=== PATIENT | male | born 1930 | race Caucasian/White ===

== ENCOUNTER 2017-02-27 19:28 | Observation (INO) ==
[2017-02-27 20:22] LABS: MANUAL DIFF NEEDED? NO
[2017-02-27 20:30] LABS: BASO% 0.6 % (0.0-0.8); EOS# 0.27 X1000 (0.0-0.7); EOS% 3.1 % (0.0-10.0); HEMOGLOBIN 10.3 g/dL (14.0-18.0); IMM GRAN# 0.03 X1000 (0.0-0.04); IMM GRAN% 0.3 % (0.0-0.5); LYMPH# 1.32 X1000 (1.2-3.4); LYMPH% 15.2 % (20.5-51.1); MCH 31.1 PG (27-31); MCHC 33.2 g/dL (33-37); MCV 93.7 FL (81-99); MONO# 0.67 X1000 (0.11-0.59); MONO% 7.7 % (1.7-9.3); MPV 9.8 FL (7.4-10.4); NEUT% 73.1 % (42.2-75.2); PLT 135 X1000 (130-400); RBC 3.31 XMIL (4.7-6.1)
[2017-02-27 21:16] LABS: CALCIUM 8.1 mg/dL (8.8-10.2); POTASSIUM 3.6 mmol/L (3.5-5.1); TOTAL BILIRUBIN 0.13 mg/dL (0.20-1.00); TOTAL PROTEIN 6.4 g/dL (6.3-8.3)
[2017-02-28] MEDS ORDERED: ULTRAM PO PRN ×2 (00:28→13:32)
[2017-02-28] MEDS ORDERED: TYLENOL PO SCH (00:28)
--- NOTE | 2017-02-28 00:50 | PROVIDER DOCUMENTATION ---
This chart was entered by Adriana Putnam Scribe, acting as scribe for Jorge Luis Moreno PA. HPI-Respiratory General - General Chief Complaint: General Adult Stated Complaint: CHEST PAIN Time Seen by Provider: 02/27/17 19:42 Source: patient Allergies/Adverse Reactions: Patient Allergies Allergy/AdvReac Type Severity Reaction Status Date / Time dextromethorphan HBr * Allergy Severe ANAPHYLAXIS Verified 02/27/17 19:47 [From NyQuil] doxylamine [From NyQuil] Allergy Severe ANAPHYLAXIS Verified 02/27/17 19:47 pseudoephedrine HCl * Allergy Severe ANAPHYLAXIS Verified 02/27/17 19:47 [From NyQuil] albuterol Allergy SHORTNESS Verified 02/27/17 19:47 OF BREATH dexlansoprazole Allergy CONFUISON Verified 02/27/17 19:47 [From Dexilant] fluticasone propionate * Allergy YEAST IN Verified 02/27/17 19:47 [From Advair Diskus] MOUTH methylprednisolone Allergy CHESTPAIN Verified 02/27/17 19:47 metoclopramide HCl * Allergy SHAKING Verified 02/27/17 19:47 [From Reglan] salmeterol xinafoate * Allergy YEAST IN Verified 02/27/17 19:47 [From Advair Diskus] MOUTH sleeping pill Allergy hallucnations Uncoded 02/27/17 19:47 found pt under bed Home Medications: Home Medication List Medication Instructions Recorded Confirmed Last Taken Type Aspirin 81 mg PO QHS 08/12/13 02/27/17 02/26/17 20:00 History Clopidogrel Bisulfate [Plavix] 75 mg PO DAILY 08/12/13 02/27/17 02/26/17 07:00 History Levothyroxine [Synthroid] 20 microgm PO DAILY 08/12/13 02/27/17 02/27/17 07:00 History Spironolactone [Aldactone] 25 mg PO DAILY 08/12/13 02/27/17 08/05/16 06:00 History Trazodone [Desyrel] 50 mg PO QHS 08/12/13 02/27/17 02/26/17 20:00 History Cetirizine HCl [Zyrtec] 10 mg PO HS 11/13/15 02/27/17 02/26/17 20:00 History Omeprazole [Prilosec] 40 mg PO DAILY@0700 11/13/15 02/27/17 02/27/17 07:00 History Tramadol HCl 37.5 mg PO PRN PRN 07/29/16 02/27/17 07/22/16 History Vitamin E 1,000 unit PO DAILY 07/29/16 02/27/17 02/27/17 07:00 History Acetaminophen [Tylenol] 1,000 mg PO Q6H #0 tablet 08/08/16 02/27/17 Unknown Rx Ergocalciferol (Vitamin D2) 50,000 unit PO DIRECTED 02/27/17 02/27/17 07:00 History [Vitamin D2] Famciclovir [Famciclovir] 500 mg PO TID 02/27/17 02/27/17 02/27/17 13:00 History Gabapentin [Gabapentin] 300 mg PO TID 02/27/17 02/27/17 02/27/17 13:00 History Sodium Polystyrene Sulfonate 60 ml PO BID 02/27/17 02/27/17 02/27/17 07:00 History [Kionex] - History of Present Illness-Resp Nature of Presenting Problem: Pt is a 86 year old male who came to the ED with a cc of having palpitations and shortness of breath this morning after taking his potassium medication. Pt was seen yesterday by Dr. Watson Nurse Practitioner and was told he had low potassium and was told to take his potassium medication. Quality of Pain: reports: none Severity in ED: reports: mild Onset/Duration: reports: this morning Timing: reports: still present Exposure: reports: unknown cause Cough Quality/Degree: reports: no cough Episode Frequency: no prior episodes Current Respiratory Medication Therapy: Initiated none Modifying Factors: improves with: exertion Associated Symptoms: reports: shortness of breath Similar Symptoms Previously?: No Recently seen or treated by another doctor?: Yes Review of Systems - Adult - REVIEW OF SYSTEMS - ADULT Constitutional: denies: chills, fever Eyes: reports: no symptoms reported Ears, Nose, Mouth & Throat: reports: no symptoms reported Cardiovascular: reports: palpitations. denies: irregular heart rate, orthopnea Respiratory: reports: shortness of breath. denies: cough, pleurisy, wheezing Gastrointestinal: denies: diarrhea, nausea, vomiting Genitourinary: reports: no symptoms reported Musculoskeletal: reports: no symptoms reported Integumentary: reports: no symptoms reported Neurological: reports: no symptoms reported Psychiatric: reports: no symptoms reported Endocrine: reports: no symptoms reported Hematologic/Lymphatic: reports: no symptoms reported Allergic/Immunologic: reports: no symptoms reported All Other Systems: Reviewed and Negative Past History - Adult - PAST MEDICAL HISTORY-ADULT Review of Records: reports: Old Records Reviewed, Nursing Assessment Review Major Childhood Illnesses: reports: denies history Cardiovascular: reports: denies history Respiratory: reports: denies history Gastrointestinal: reports: denies history Obstetrical/Gynecological: reports: denies history Genitourinary: reports: denies history Musculoskeletal: reports: denies history Neurological: reports: denies history Endocrine/Immune: reports: denies history Other Conditions: reports: denies history - IMMUNIZATION STATUS Childhood Immunizations: See Nurse Assessment Flu Vaccine: See Nurse Assessment - FAMILY HISTORY Family History: reviewed, not pertinent Physical Exam-General - PHYSICAL EXAM-ADULT Initial Vital Signs Reviewed: Yes - CONSTITUTIONAL General Appearance: appears well, alert, no apparent distress - EYES Eyes: PERRL/EOMI, pink conjunctivae - HEAD, EARS, NOSE, MOUTH & THROAT HENMT: normocephalic/atraumatic, moist mucous membranes - NECK Neck: non-tender, full range of motion - RESPIRATORY Respiratory: chest non-tender, wheezing (slight wheezing), increased rate (and shallow). negative: accessory muscle use, crackles, rales, rhonchi, stridor - CARDIOVASCULAR Cardiovascular: normal peripheral pulses, regular rate, rhythm, no edema, no gallop, no JVD, no murmur - GASTROINTESTINAL (ABDOMEN) Abdominal Exam: normal bowel sounds, non tender, soft. negative: distended, guarding, rigid, rebound, tenderness - MUSCULOSKELETAL Back Exam: normal inspection, no CVA tenderness Extremity: normal range of motion, non-tender Peripheral Pulses: radial (R): 2+, radial (L): 2+, dorsalis-pedis (R): 2+, dorsalis-pedis (L): 2+ - SKIN Integumentary: normal color, normal turgor - NEUROLOGIC Neurologic: panama hat smearer II-XII nml as tested, grossly normal - PSYCHIATRIC Psych/Mental Status: normal mood/affect, normal thought content, normal thought process, oriented x 3 Progress - PLAN OF CARE/RESULTS Progress/Plan/Lab Results: Vital Signs - 8 hr 02/27/17 19:38 Temperature 98.9 F Pulse Rate 98 H Respiratory Rate 22 Blood Pressure 148/60 O2 Sat by Pulse Oximetry 99 Laboratory Results - last 24 hr 02/27/17 02/27/17 02/27/17 20:06 20:06 20:06 WBC 8.67 RBC 3.31 L Hgb 10.3 L Hct 31.0 L MCV 93.7 MCH 31.1 H MCHC 33.2 RDW Std Deviation 15.3 H Plt Count 135 MPV 9.8 Immature Gran % (Auto) 0.3 Neut % (Auto) 73.1 Lymph % (Auto) 15.2 L Foster % (Auto) 7.7 Eos % (Auto) 3.1 Baso % (Auto) 0.6 Immature Gran # (Auto) 0.03 Neut # (Auto) 6.33 Lymph # (Auto) 1.32 Foster # (Auto) 0.67 H Eos # (Auto) 0.27 Baso # (Auto) 0.05 PTT (Actin FS) D-Dimer 1.03 H Sodium 140 Potassium 3.6 Chloride 101 Carbon Dioxide 32 Anion Gap 7 BUN 25 H Creatinine 1.8 H Estimated GFR/1.73 m2 36 BUN/Creatinine Ratio 14 Glucose 110 H Calculated Osmolality 284 Calcium 8.1 L Total Bilirubin 0.13 L AST 15 ALT 12 Alkaline Phosphatase 64 Creatine Kinase Troponin T Vks-G-Hxthzkhdyth Pept Total Protein 6.4 Albumin 4.0 Globulin 2.4 Albumin/Globulin Ratio 1.7 02/27/17 02/27/17 02/27/17 20:06 20:06 20:06 WBC RBC Hgb Hct MCV MCH MCHC RDW Std Deviation Plt Count MPV Immature Gran % (Auto) Neut % (Auto) Lymph % (Auto) Foster % (Auto) Eos % (Auto) Baso % (Auto) Immature Gran # (Auto) Neut # (Auto) Lymph # (Auto) Foster # (Auto) Eos # (Auto) Baso # (Auto) PTT (Actin FS) 26.5 D-Dimer Sodium Potassium Chloride Carbon Dioxide Anion Gap BUN Creatinine Estimated GFR/1.73 m2 BUN/Creatinine Ratio Glucose Calculated Osmolality Calcium Total Bilirubin AST ALT Alkaline Phosphatase Creatine Kinase 30 Troponin T Lxi-V-Owrsawxxlkf Pept 408 Total Protein Albumin Globulin Albumin/Globulin Ratio 02/27/17 20:06 WBC RBC Hgb Hct MCV MCH MCHC RDW Std Deviation Plt Count MPV Immature Gran % (Auto) Neut % (Auto) Lymph % (Auto) Foster % (Auto) Eos % (Auto) Baso % (Auto) Immature Gran # (Auto) Neut # (Auto) Lymph # (Auto) Foster # (Auto) Eos # (Auto) Baso # (Auto) PTT (Actin FS) D-Dimer Sodium Potassium Chloride Carbon Dioxide Anion Gap BUN Creatinine Estimated GFR/1.73 m2 BUN/Creatinine Ratio Glucose Calculated Osmolality Calcium Total Bilirubin AST ALT Alkaline Phosphatase Creatine Kinase Troponin T < 0.010 Ifk-T-Hnkarztbkdj Pept Total Protein Albumin Globulin Albumin/Globulin Ratio Orders Category Date Time Status Admit - [facility] Routine AdmDCTranf 02/28/17 00:28 Ordered CBC WITH DIFF [HEME] Stat Lab 02/27/17 20:06 Completed CK PROFILE [SP CHEM] Stat Lab 02/27/17 20:06 Completed COMPREHENSIVE METABOLIC PANEL [CHEM] Stat Lab 02/27/17 20:06 Completed D-DIMER [CHEM] Stat Lab 02/27/17 20:06 Completed PRO B-NATRIURETIC PEPTIDE Stat Lab 02/27/17 20:06 Completed PTT [COAG] Stat Lab 02/27/17 20:06 Completed TROPONIN T Stat Lab 02/27/17 20:06 Completed Acetaminophen [Tylenol] Med 02/28/17 00:28 Active 1,000 mg PO Q6H Aspirin Med 02/28/17 21:00 Active 81 mg PO QHS Cetirizine [Zyrtec] Med 02/28/17 21:00 Active 10 mg PO HS Clopidogrel [Plavix] Med 02/28/17 09:00 Active 75 mg PO DAILY Ergocalciferol (Vitamin D2) [Vitamin D] Med 03/02/17 09:00 Active 50,000 unit PO Q7D Famciclovir [Famvir] Med 02/28/17 09:00 Active 500 mg PO TID Gabapentin [Neurontin] Med 02/28/17 09:00 Active 300 mg PO TID Levothyroxine [Synthroid] Med 02/28/17 09:00 Pending 20 microgm PO DAILY Omeprazole [Prilosec] Med 02/28/17 07:00 Active 40 mg PO DAILY@0700 Spironolactone [Aldactone] Med 02/28/17 09:00 Active 25 mg PO DAILY Tramadol [Ultram] Med 02/28/17 00:28 Pending 37.5 mg PO PRN PRN Trazodone [Desyrel] Med 02/28/17 21:00 Active 50 mg PO QHS Vitamin E Med 02/28/17 09:00 Active 1,000 units PO DAILY EKG [EKG] Stat Ther 02/27/17 19:30 Ordered Transfer/Admit Order [TRANSFER] Routine Transfer 02/27/17 23:52 Completed Result Diagrams: 02/27/17 20:06 02/27/17 20:06 - REASSESSMENT Reassessment #1 Time Reassessed: 22:07 (Elevated d dimer, but pt has renal insufficiency. Recommend admission for VQ scan in the morning, pt having progressive weakness, palpitations and shortness of breath. Discussed wtih Dr. Lizarraga. Waiting for return call from hospitalist. ) - CONSULTS/PCP/HOSPITALIST Notification #1 *Consult/PCP/Hospitalist*: Dr. Coleman, Hospitalist Time Discussed: 22:15 Consult Disposition: Will see in ED, Admit Departure - Departure Date of Disposition Decision: 01/27/17 Time of Disposition Decision: 22:15 DIAGNOSIS: Tachycardia, Tachypnea, Palpitations, Weakness, Elevated d-dimer Disposition: ADMITTED INPATIENT 09 Certified Medical Emergency: Emergent Condition: Stable - Critical Care Note This patient required my direct & personal management of CC.: No Attestation - Physician/ JANEE Attestation Patient care was provided by Advanced Practice Provider:: Yes Advanced Practice Provider:: Jorge Luis Moreno Advanced Practice Provider documentation review:: The Mid-level provider documentation, treatment plan and medical decision making was reviewed by the physician who agrees with all treatment and medical decision making by the [facility]. The physician spent face to face time with patient:: No Advanced Practice Provider documentation review:: Supervising physician onsite and consulted in the evaluation and care of this patient. The physician did not have a face to face encounter with the patient. This chart was documented by the indicated scribe, (Adriana Putnam Scribe) and accurately reflects the services I performed and decisions made by me, Jorge Luis Moreno PA, as attested by the provider's signature.
[2017-02-28] MEDS ORDERED: TYLENOL PO PRN (00:59)
[2017-02-28] MEDS ORDERED: NITROGLYCERIN SL PRN (00:59)
[2017-02-28] MEDS ORDERED: ZOFRAN IV PRN (00:59)
[2017-02-28 04:01] LABS: MANUAL DIFF NEEDED? NO
[2017-02-28 04:02] LABS: BASO% 0.6 % (0.0-0.8); EOS# 0.35 X1000 (0.0-0.7); EOS% 4.1 % (0.0-10.0); HEMATOCRIT 29.2 % (42.0-52.0); HEMOGLOBIN 9.9 g/dL (14.0-18.0); IMM GRAN# 0.03 X1000 (0.0-0.04); IMM GRAN% 0.4 % (0.0-0.5); LYMPH# 1.75 X1000 (1.2-3.4); LYMPH% 20.5 % (20.5-51.1); MCH 31.8 PG (27-31); MCHC 33.9 g/dL (33-37); MCV 93.9 FL (81-99); MONO# 0.67 X1000 (0.11-0.59); MONO% 7.9 % (1.7-9.3); MPV 10.4 FL (7.4-10.4); NEUT% 66.5 % (42.2-75.2); PLT 125 X1000 (130-400); RBC 3.11 XMIL (4.7-6.1)
[2017-02-28 04:26] LABS: CALCIUM 8.2 mg/dL (8.8-10.2); MAGNESIUM 1.6 mg/dL (1.5-2.7); POTASSIUM 4.1 mmol/L (3.5-5.1)
--- NOTE | 2017-02-28 05:27 | EKG Report ---
Test Performed on : 02/27/2017 7:34:41 PM Test Reason : cp Blood Pressure : / mmHG Vent. Rate : 100 BPM Atrial Rate : 100 BPM P-R Int : 156 ms QRS Dur : 068 ms QT Int : 352 ms P-R-T Axes : 062 043 028 degrees QTc Int : 454 ms Sinus rhythm. with premature atrial complexes. Otherwise normal ECG When compared with ECG of 31-JUL-2016 12:58, premature atrial complexes. are now present Unconfirmed Result
[2017-02-28] MEDS: PRILOSEC PO SCH (06:14)
--- NOTE | 2017-02-28 07:00 | EKG Report ---
Test Performed on : 02/28/2017 06:07:07 AM Test Reason : Chest Pain Blood Pressure : / mmHG Vent. Rate : 070 BPM Atrial Rate : 070 BPM P-R Int : 166 ms QRS Dur : 076 ms QT Int : 418 ms P-R-T Axes : 017 053 046 degrees QTc Int : 451 ms Atrial-paced rhythm Abnormal ECG When compared with ECG of 27-FEB-2017 19:34, (Unconfirmed) Electronic atrial pacemaker has replaced Sinus rhythm. Confirmed by Aly Maddox DO ([id number]) on 03/02/2017 10:21:15 AM
--- NOTE | 2017-02-28 07:32 | Diag Imaging Result Doc PS360 ---
CHEST-PORTABLE - 02/28/2017 INDICATION: Chest Pain/SOB TECHNIQUE: COMPARISON: 10/07/2014 FINDINGS: Stable pacemaker. Heart size and pulmonary vascularity is normal. No focal infiltrates, pneumothorax, or pleural effusion. IMPRESSION: No acute disease or change from prior. Electronically signed by Boo Stone 02/28/2017 7:29 AM
--- NOTE | 2017-02-28 07:45 | HISTORY AND PHYSICAL ---
PRIMARY CARE PROVIDER: August Colorado MD DATE AND TIME OF HISTORY AND PHYSICAL: On 02/28/2017 at 0030 hours. CHIEF COMPLAINT: Chest pain. HISTORY OF PRESENT ILLNESS: Mr. Spain is an 86-year-old male with a past medical history of coronary artery disease, status post stent placement. He also has a demand pacemaker. He presented to his physician's office yesterday, that being 02/26/2017, for complaints of chest pain, as well as palpitations. He states they did labs in the office and told him that his potassium was high. He was given a prescription for Kayexalate. The patient states that today, this afternoon, he began having a period of chest pain shortly after going to the restroom after eating dinner. He states this chest pain last upon approximately 1 hour. He described it as a constant dull ache. It was nonradiating. He does report some associated symptoms of palpitations and shortness of breath. The patient does state that he is short of breath all the time, and at this time this has not been any worse than normal. He does report some loose stools since starting the Kayexalate, though other than some reported weakness with his chest pain episode as well, he denies any other symptoms at this time. The patient states that for the past few months intermittently he has reported some palpitations. He states that he has not informed his physician or health care law specialist of this and has not recently had his pacemaker interrogated, though he did recently have the battery replaced in 2014. Upon evaluation in the ER, he was noted to have an elevated D-dimer of 1.03, though due to his renal function a CTA of the pulmonary arteries was unable to be performed at this time. At this time, we will admit the patient for further treatment and evaluation of his chest pain. Initial cardiac enzymes were negative, and his EKG showed sinus rhythm with premature atrial complexes at a rate of 100 with a QTc of 454. REVIEW OF SYSTEMS: A 12-point review of systems was conducted with the patient. All were negative except for pertinent positives as mentioned in the HPI. PAST MEDICAL HISTORY: 1. Coronary artery disease, status post stent placement. 2. Hypertension. 3. Hyperlipidemia. 4. Hypothyroidism. 5. Dual-chamber pacemaker placement for sick sinus syndrome. 6. History of diastolic heart dysfunction. 7. Recent diagnosis of herpes zoster. 8. 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 PAST SURGICAL HISTORY: 1. Pacemaker placement. 2. Cardiac stent placement. 3. Cholecystectomy. 4. Right hip replacement. 5. Appendectomy. 6. Bilateral cataract surgery. SOCIAL HISTORY: The patient denies any past or present tobacco, alcohol, or illicit drug use. ALLERGIES: The patient reports allergies to NyQuil, albuterol, Dexilant, Advair Diskus, methylprednisolone, Reglan, and unknown sleeping pill. MEDICATIONS: 1. Famciclovir 500 mg p.o. t.i.d. 2. Kionex 60 mL p.o. b.i.d. 3. Gabapentin 300 mg p.o. t.i.d. 4. Vitamin E 1000 units p.o. daily. 5. Vistaril 50 mg p.o. every night at bedtime. 6. Ultracet 37.5/325 mg tablets p.r.n. as directed for pain. 7. Aldactone 25 mg p.o. daily. 8. Prilosec 40 mg p.o. daily. 9. Levothyroxine 20 mcg p.o. daily. 10. Vitamin D2 at 50,000 units p.o. as directed. 11. Plavix 75 mg p.o. daily. 12. Zyrtec 10 mg p.o. every night at bedtime. 13. Aspirin 81 mg p.o. every night at bedtime. DIAGNOSTIC DATA: Laboratory results, white blood cell count is 8.67, hemoglobin 10.3, hematocrit 31, and platelet count is 135,000. PTT 26.5, D-dimer 1.03. Sodium 140, potassium 3.6, chloride 101, bicarbonate 32, BUN 25, creatinine 1.8 with a GFR of 36. Glucose 110, calcium 8.1. Liver function tests are within normal limits. CK 30, troponin less than 0.01, and proBNP was 408. EKG shows sinus rhythm with premature atrial complexes at a rate of 100 with a QTc of 454. We have placed a chest x-ray to be performed and are awaiting those results at this time. PHYSICAL EXAMINATION: VITAL SIGNS: Temperature 98.5 degrees, heart rate 81, respirations 20, blood pressure 133/75, oxygen saturation is 96% on room air. GENERAL: Mr. Spain is a very pleasant 86-year-old male who is resting comfortably on the ER stretcher. He was in no acute distress. He was awake, alert, and able to answer all questions appropriately. HEENT: Head is atraumatic, normocephalic. Pupils are equal, round, reactive to light, were 3 mm bilaterally and brisk. Oral mucosa is moist. Oropharynx is clear. NECK: Supple. Trachea midline. No carotid bruits noted upon auscultation bilaterally. CARDIOVASCULAR: The patient has normal S1 and S2. No murmurs, gallops, rubs appreciated with a regular rate and slightly irregular rhythm. PULMONARY: The patient has symmetrical chest expansion bilaterally. Lung sounds were clear to auscultation bilaterally in full ricks. He is maintaining oxygen saturation in the high 90s on room air. ABDOMEN: Soft, nontender, nondistended. Bowel sounds are present in all 4 quadrants and are normoactive. EXTREMITIES: No cyanosis, clubbing, or edema noted. Pulse, motor, and sensory are intact in all extremities. Pedal pulses are 3+ bilaterally. INTEGUMENTARY: The patient's skin is pink, warm, dry, and intact. He does have a rash noted along his right lateral thigh, as well as right hip, and across his right buttock. This rash at this time does not appear to be opened. The patient does report some tenderness upon palpation in this area. NEUROLOGICAL: The patient is alert and oriented x4. Cranial nerves 2 through 12 are grossly intact. Muscle strength is equal bilaterally. There is no facial droop noted. He denies any numbness or tingling at this time. ASSESSMENT AND PLAN: 1. Chest pain. For further evaluation of this, we have placed a series of cardiac enzymes, as well as a repeat EKG in the morning. We have also placed orders for an echocardiogram. So far, at this time the patient's cardiac enzymes have been negative. We will place him on continuous telemetry. We also put an order for Cardiology consultation as well. Given that the patient has had chest pain, as well as some reported shortness of breath , and he did have an elevated D-dimer, we will continue to rule out the possibility of a pulmonary embolism or possible deep vein thrombosis. We have placed an order for a V/Q lung scan in the morning, as well as bilateral lower extremity venous Doppler studies, and we will continue to follow and await those results. 2. Palpitations. The patient states that this has been ongoing for the past few months. He will be on continuous telemetry, and we will await Cardiology's evaluation for further management of this, though this could be possible pacemaker related. 3. Coronary artery disease, status post stent placement. We will continue the patient's aspirin and Plavix. 4. Hypertension. We will continue his Aldactone. 5. 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 At this time looking back at the patient's previous labs, this appears to be stable at this time. We will continue to follow and renally dose medications as necessary. 6. Normocytic anemia. This could be possibly related to the patient's chronic kidney disease. This appears to be stable at this time based on the patient's previous laboratory results, we will continue to monitor. 7. Hypothyroidism. We will continue the patient's levothyroxine. 8. Herpes zoster. We will continue with the patient's famciclovir, as well as his tramadol for pain. 9. He will be placed on the medical floor with telemetry. He will have vital signs every 4 hours. We will do strict intake and output. He will be on a heart healthy diet. Further orders and recommendations pending hospital course, diagnostic studies, and physician evaluation. Dictated by JAYLENE Duong for Ousmane Coleman MD cc: MD Kendrick Sanchez MD pt examined, agree with above APENOT MTDD
[2017-02-28] MEDS ORDERED: SYNTHROID PO SCH (09:00)
[2017-02-28] MEDS: FAMVIR PO SCH ×4 (09:42→18:00)
[2017-02-28] MEDS: PLAVIX PO SCH (09:43)
[2017-02-28] MEDS: NEURONTIN PO SCH ×3 (09:43→20:58)
[2017-02-28] MEDS: HEPARIN SUBQ SCH ×2 (09:43→20:58)
[2017-02-28] MEDS: ALDACTONE PO SCH (09:43)
[2017-02-28] MEDS: VITAMIN E PO SCH (09:43)
--- NOTE | 2017-02-28 12:47 | ECHO REPORT ---
ORDER DATE: 02/28/2017 INDICATION: Chest pain, history of TIA as well as CHF. FINDINGS: 1. Right atrium appears normal in size at 3.7 cm. Linear artifact consistent with device leads is noted the right heart chambers. 2. Mild tricuspid regurgitation with an RV systolic pressure of 48. 3. Normal RV size and systolic function. 4. No significant pulmonic insufficiency. 5. Normal left atrial size at 3 cm. 6. No mitral prolapse. Trace mitral regurgitation. 7. Normal LV size, end-diastolic dimension of 3.2. Normal wall thicknesses with a posterior and interventricular septal wall thicknesses of 1.0 and 0.6 cm respectively. Normal LV systolic function with a calculated EF of 64% with normal wall motion. 8. Aortic valve is difficult to visualize on 2 dimensional parameters. It is somewhat sclerotic. There is no significant gradient across the valve to suggest a significant degree of stenosis. There is no aortic insufficiency identified. 9. Aorta appears normal in visualized segments. 10. No pericardial effusion seen. cc: MD Kendrick Mackenzie MD
[2017-02-28] MEDS ORDERED: LMX 5 CREAM TOP PRN (13:30)
[2017-02-28] MEDS ORDERED: ULTRACET 37.5MG/325MG PO PRN (13:40)
[2017-02-28] MEDS ORDERED: XYLOCAINE 5% OINT TOP PRN (14:05)
--- NOTE | 2017-02-28 15:28 | Diag Imaging Result Doc PS360 ---
EXAM: LUNG SCAN / VQ HISTORY: Chest Pain,Elevated D-Dimer TECHNIQUE: Ventilation/perfusion lung scan, 40.7 mCi of technetium 99m DTPA aerosol/5.9 mCi of technetium 99m MAA intravenously. COMMENT: There is no evidence of ventilation/perfusion mismatch. No absolute perfusion defects are present. IMPRESSION: Normal study. Electronically signed by Kevan Mcmanus 02/28/2017 3:25 PM
--- NOTE | 2017-02-28 19:12 | CONSULTATION ---
DATE OF CONSULTATION: 02/28/2017 IMPRESSION: 1. Chest discomfort with predominantly atypical features. The patient actually characterizes chest discomfort as a numbness that is very brief followed by a dull pain across the upper left chest. He also relates some episodes of chest tightness across the lower chest. All of his chest symptoms are nonexertional. Pattern of symptoms has been relatively stable and generally infrequent. 2. Atherosclerotic coronary disease with history of previous coronary angioplasty/stenting to the right coronary artery in 2007. Patient last had stress study in July 2013 which was negative for inducible ischemia. 3. Abnormal D-dimer this admission. Patient has already had V/Q lung scan today which was normal. 4. Hypertension. 5. Renal dysfunction with creatinine 1.9. 6. Occasional brief palpitations. Pacemaker interrogation today shows no recent arrhythmias. There have been some brief instances of supraventricular tachycardia in December. 7. Sinus node dysfunction. Patient is status post permanent pacemaker with [employer] device. 8. Hypertension. 9. Hyperlipidemia. 10. Transient ischemic attack in the past. 11. Recent shingles in right thigh. RECOMMENDATIONS: 1. Given that cardiac enzymes have been negative, it is reasonable to consider further evaluation as an outpatient at this point. Certainly a noninvasive workup would be most appropriate with Lexiscan sestamibi study. This was discussed at length with the patient and his and they are most comfortable with this approach. Unless large burden of ischemia is manifest, would gravitate towards medical management of his coronary atherosclerosis. 2. Add low-dose beta garrick. I suspect that he had been on this before but has been reporting some generalized weakness that seems to be unrelated to being on beta-garrick as he has continued to report this symptom. HISTORY: This 86-year-old white male with history of previous coronary angioplasty/stenting of the right coronary in 2007, sinus node dysfunction, previous permanent pacemaker, hypertension, hyperlipidemia, previous transient ischemic attack, and recent shingles eruption right thigh was admitted for further evaluation of chest pain. He describes his chest symptoms somewhat vaguely. He relates a numbness in the center of the chest that may occur spontaneous and last less than 10 seconds followed by some dull discomfort across the left upper chest. He also describes occasional episodes of chest tightness across the lower precordium. None of his chest symptoms are exertional. He has had such chest symptoms off and on for some time and relates that the pattern symptoms seems to be fairly stable. However his became aware of his chest symptoms and brought him in for evaluation after which he was referred for admission. He has difficulty recalling his chest symptoms that he experienced prior to his coronary angioplasty/stent procedure. His indicates that it was a rather prominent chest tightness. He has been getting progressively weaker insidiously over the last few years. He relates that he might go out to the garden and pick a tomato and after which he feels like he is "done." PAST MEDICAL HISTORY: 1. Atherosclerotic coronary disease as outlined above. 2. Sick sinus syndrome. Patient is status post permanent pacemaker. 3. Atherosclerotic carotid disease. 4. History of previous transient ischemic attack. 5. Hypertension. 6. Hyperlipidemia. 7. Hypothyroidism. PAST SURGICAL HISTORY: Includes appendectomy, cholecystectomy, hemorrhoidectomy, Augustin fundoplication, right hip replacement and bilateral cataract surgery. MEDICATIONS: Prior to admission as listed. 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 He does not smoke or use alcohol. He is . His is age 69. FAMILY HISTORY: Negative for premature coronary disease. REVIEW OF SYSTEMS: Pulmonary: Negative. Gastrointestinal: Negative. Constitutional: Negative. Remainder review of systems negative/noncontributory with 14 total systems reviewed. PHYSICAL EXAMINATION: General: This is a pleasant, elderly white male in no distress. Vital signs: Blood pressure 150/68, heart rate 74 and regular. HEENT: Extraocular movements appear intact. Mucous membranes moist. Neck: Supple without jugular venous distention. There are no carotid bruits. Chest: Clear to auscultation. Cardiac Exam: Reveals a regular rate and rhythm without appreciable murmur or gallop. Abdomen: Soft, nontender. Bowel sounds are normal. Extremities: Without edema. Neurologic Exam: Reveals him to be alert, fully oriented. Speech is fluent. He moves all 4 extremities equally well. Psychiatric: Reveals mood to be appropriate. DIAGNOSTIC DATA: ECG demonstrates atrial paced rhythm. cc: MD Kendrick Duval MD
--- NOTE | 2017-02-28 19:32 | PROGRESS NOTE ---
DATE: 02/28/2017 SUBJECT: Interval history was reviewed. 86-year-old white gentleman admitted to the hospital last night with chest pain and he has known history of coronary artery disease with a stent, seen by Dr. Lenz. Pain is pericardium not related to any exertion. He was seen in the ER last night. He had elevated D-dimer and also EKG did not show injury or ischemia. Admitted in telemetry. He was also seen 2 weeks ago for right leg shingles recovering. REVIEW OF SYSTEMS: HEENT: No headache. No vision problem. No earache. No sore throat. Cardiopulmonary: Chest pain nonexertional. No shortness of breath, PND, orthopnea. GI: No nausea, vomiting, abdominal pain. No focal symptoms. Extremities: Shingles on the right thigh festered up. PAST MEDICAL HISTORY: Reviewed. PAST SURGICAL HISTORY: Reviewed. MEDICINES: Reviewed. PHYSICAL EXAMINATION: Vital Signs: Afebrile. Vitals are stable. Blood pressure is 150/68, 3 L of oxygen 100%. HEENT exam: Within normal limits. Neck: Supple. Chest: Bilateral air entry. Heart: Sounds are regular. Belly: Soft, nontender. Good bowel sounds. Extremities: No peripheral edema, cyanosis. Neuro: No obvious neurological deficits. Skin: Shingles lesions festered up on the right thigh seen. INVESTIGATIONS: EKG normal sinus, nothing acute. V/Q scan normal study. Venous Dopplers on both legs were negative for acute DVT. Chest x-ray was stable with pacemaker on the left side. Echocardiography with Doppler normal LV cavity size, EF 64%. CBC. White cell count 8.5, hematocrit 29, platelets 125,000. SMA 7 is normal. BUN 25, creatinine 1.9. Cardiac enzymes were negative. ASSESSMENT AND PLAN: 1. Chest pain, atypical existing heart disease ruled out. Discussed with Dr. Caldera about the workup as outpatient. 2. Right thigh shingles. Continue on Famvir, gabapentin. 3. DVT prophylaxis with subcutaneous heparin. 4. Gastrointestinal prophylaxis with Prilosec. 5. Benign prostatic hypertrophy on Flomax was discontinued. 6. Chronic kidney disease stable. Will do the bladder scan out of the bed and reconcile home medicines. 7. Will discuss with Dr. Caldera about further plans as well as the family. LEVEL OF DOCUMENTATION: 35 minutes. cc: Kendrick [place] MD [facility]
[2017-02-28] MEDS ORDERED: ZYRTEC PO SCH (21:00)
[2017-02-28] MEDS ORDERED: ASPIRIN PO SCH (21:00)
[2017-02-28] MEDS ORDERED: DESYREL PO SCH (21:00)
[2017-03-01] MEDS: PRILOSEC PO SCH (06:03)
[2017-03-01] MEDS ORDERED: SYNTHROID PO SCH (07:00)
[2017-03-01 08:08] LABS: CALCIUM 8.6 mg/dL (8.8-10.2); MAGNESIUM 1.9 mg/dL (1.5-2.7); POTASSIUM 3.4 mmol/L (3.5-5.1)
[2017-03-01 08:20] VITALS: BP 149/75
[2017-03-01] MEDS: NEURONTIN PO SCH (08:32)
[2017-03-01] MEDS: HEPARIN SUBQ SCH (08:34)
[2017-03-01] MEDS: PLAVIX PO SCH (08:35)
[2017-03-01] MEDS: FAMVIR PO SCH (08:35)
[2017-03-01] MEDS: ALDACTONE PO SCH (08:36)
[2017-03-01] MEDS: VITAMIN E PO SCH (08:36)
--- NOTE | 2017-03-01 22:06 | DISCHARGE SUMMARY ---
ADMISSION DATE: 02/28/2017 DISCHARGE DATE: 03/01/2017 DISCHARGING DIAGNOSIS: Chest pain atypical. SECONDARY DIAGNOSES: 1. Hyperkalemia due to Aldactone. 2. Renal insufficiency due to azotemia. 3. History of bladder outlet obstruction off on Flomax. 4. Coronary artery disease status post stent in right coronary artery. 5. Hyperlipidemia. 6. Hypothyroidism. 7. Acid reflux disease. 8. Vitamin B12 deficiency. 9. Vitamin D deficiency. 10. Shingles for the right thigh with postherpetic neuralgia. CONSULT: Akhil Johnson house calls nurse. BRIEF HISTORY: Please see the H and P that was done by hospitalist. In brief he is 86-year-old white gentleman came to the ER with chest pain with underlying coronary artery disease. Patient had last stress test was done by Dr. Lenz 2 years ago. He was admitted to the hospital for chest pain rule out IA. Pain is atypical. Initial EKG and cardiac enzymes were normal. Patient had echocardiography done as well as seen by his house calls nurse Akhil Ashby. He was pain-free. He has been suffering from postherpetic neurology on the right thigh. For which she was given Neurontin as well as Lidoderm cream. He also had hyperkalemia and I advised the patient to discontinue Aldactone. LABS: During this hospital course at the time of discharge CBC, white cell count 8.5, hematocrit 29, platelets 125,000. Sodium 140, potassium 3.4, chloride 106, BUN 23, creatinine 1.7, calcium 8.6. Cardiac enzymes were normal. V/Q scan is negative. Echocardiography findings. Normal LV systolic function around 65%. No significant valvular heart disease seen. Chest x-ray was stable. DISCHARGING INSTRUCTIONS: Discontinue Aldactone due to hyperkalemia. Synthroid 25 mcg daily, aspirin 81 mg daily, Plavix 75 daily, trazodone 50 at bedtime, Prilosec 40 daily, cetirizine 10 mg daily, Ultracet as needed, vitamin D 61056 once a week, vitamin B12 1 mL every month, gabapentin 300 t.i.d., Famvir 500 t.i.d. for 5 days and Lidoderm cream for the postherpetic neuralgia pain and will set up for outpatient chemical stress test in my office on Friday. cc: Alex Caldera MD
[2017-03-02] MEDS ORDERED: VITAMIN D PO SCH (09:00)
--- NOTE | 2017-03-03 06:27 | EKG Report ---
Test Performed on : 03/01/2017 06:28:50 AM Test Reason : chest pain Blood Pressure : / mmHG Vent. Rate : 070 BPM Atrial Rate : 070 BPM P-R Int : 196 ms QRS Dur : 074 ms QT Int : 422 ms P-R-T Axes : 061 050 056 degrees QTc Int : 455 ms Atrial-paced rhythm Abnormal ECG When compared with ECG of 28-FEB-2017 06:07, (Unconfirmed) No significant change was found Confirmed by Aly Maddox DO ([id number]) on 03/04/2017 7:16:51 AM
--- NOTE | 2017-03-03 15:26 | Extremity Venous Study ---
PROCEDURE NAME: Venous U/S Bilateral Legs - 02/28/2017 REFERRING PHYSICIAN: READING PHYSICIAN: Dr. Montes PROJECT PORTFOLIO ANALYST: Azul INDICATION: Leg pain and elevated D-dimer. FINDINGS: The deep and superficial veins of both lower extremities were imaged throughout their course. They are compressible, patent and without thrombus. INTERPRETATION: No evidence of deep or superficial venous thrombosis in either lower extremity. cc: MD Kendrick Sloan MD
--- NOTE | 2017-04-25 16:56 | ED EKG INTERP ---
This chart was entered by Adriana Putnam Scribe, acting as scribe for Guerrero Lizarraga MD. EKG Interpretation - EKG Time of EKG reading by physician:: 19:34 EKG Read and Signed by:: Guerrero Lizarraga EKG Interpretation (*Must complete 3 of following elements*): Normal Rate: 100 Rhythm: sinus rythm w premature atrial complexes e Attestation - Physician/ JANEE Attestation The physician spent face to face time with patient:: No Advanced Practice Provider documentation review:: Supervising physician onsite and consulted in the evaluation and care of this patient. The physician did not have a face to face encounter with the patient. This chart was documented by the indicated scribe, (Adriana Putnam Scribe) and accurately reflects the services I performed and decisions made by me, Guerrero Lizarraga MD, as attested by the provider's signature.
== END 2017-03-01 13:32 | disposition home or self-care (01) ==
LOC: ED 19:28 → 3N 02-28 00:04 → INTOOBSV 02-28 00:04 → SUATTDRO 02-28 00:04
PROVIDERS: ADMIT Internal Medicine; ATTEND Internal Medicine

== ENCOUNTER 2018-12-11 14:47 | Inpatient (IN) ==
--- NOTE | 2018-12-11 15:48 | Diag Imaging Result Doc PS360 ---
EXAM: CHEST-2 VIEWS 12/11/2018 HISTORY: chest pain TECHNIQUE: AP upright and lateral chest COMMENT: The left hemidiaphragm is slightly elevated. This was also the case on 11/22/2017. The appearance of the chest has not changed significantly since the previous study. IMPRESSION: Stable chest. Electronically signed by Kevan Mcmanus 12/11/2018 3:46 PM
[2018-12-11 16:13] LABS: BASO# 0.05 X1000 (0.0-0.2); BASO% 0.5 % (0.0-0.8); EOS# 0.15 X1000 (0.0-0.7); EOS% 1.6 % (0.0-10.0); HEMATOCRIT 36.8 % (42.0-52.0); IMM GRAN# 0.11 X1000 (0.0-0.04); IMM GRAN% 1.2 % (0.0-0.5); LYMPH# 1.26 X1000 (1.2-3.4); LYMPH% 13.2 % (20.5-51.1); MCH 29.8 PG (27-31); MCHC 32.6 g/dL (33-37); MCV 91.3 FL (81-99); MONO# 0.78 X1000 (0.11-0.59); MONO% 8.2 % (1.7-9.3); MPV 11.1 FL (7.4-10.4); NEUT# 7.18 X1000 (1.4-6.5); NEUT% 75.3 % (42.2-75.2); PLT 133 X1000 (130-400); RBC 4.03 XMIL (4.7-6.1); RDW 16.3 % (11.5-14.5); WBC 9.53 X1000 (4.8-10.8)
[2018-12-11 16:34] LABS: INR 0.92; PROTIME 13.1 Seconds (11.0-16.0)
[2018-12-11 16:35] LABS: PTT 29.6 Seconds (22.3-41.8)
[2018-12-11 16:42] LABS: AGAP 11; ALB/GLOB RATIO 1.7; ALBUMIN 3.8 g/dL (3.5-5.0); ALKALINE PHOSPHATASE 52 U/L (32-122); BUN 30 mg/dL (8-22); CALCIUM 9.4 mg/dL (8.8-10.2); CHLORIDE 102 mmol/L (98-107); CK PROFILE 25 U/L (24-204); COSMO 281; CREATININE 1.7 mg/dL (0.7-1.2); ESTIMATED GFR 38; GLUCOSE 177 mg/dL (70-104); GOT 11 U/L (10-34); GPT 13 U/L (10-44); POTASSIUM 5.2 mmol/L (3.5-5.1); SODIUM 135 mmol/L (136-145); TCO2 22 mmol/L (25-35); TOTAL BILIRUBIN < 0.15 mg/dL (0.20-1.00); TOTAL PROTEIN 6.1 g/dL (6.3-8.3)
--- NOTE | 2018-12-11 18:41 | ED EKG INTERP ---
This chart was entered by Alyssa Dooley Scribe, acting as scribe for Mariusz Gómez MD. EKG Interpretation - EKG Time of EKG reading by physician:: 18:20 EKG Read and Signed by:: Mariusz Gómez EKG Interpretation (*Must complete 3 of following elements*): Normal Rate: 79 Rhythm: nsr [place]: normal QRS: normal IN Interval: normal ST Wave: normal Attestation - Physician/ JANEE Attestation The physician spent face to face time with patient:: Yes Advanced Practice Provider documentation review:: Supervising physician onsite and consulted in the evaluation and care of this patient. The physician did have a face to face encounter with the patient. This chart was documented by the indicated scribe, (Alyssa Dooley Scribe) and accurately reflects the services I performed and decisions made by me, Mariusz Gómez MD, as attested by the provider's signature.
--- NOTE | 2018-12-11 18:42 | PROVIDER DOCUMENTATION ---
This chart was entered by Oneyda Frank Scribe, acting as scribe for Mariusz Gómez MD. HPI-Chest Pain - General Source: patient - History of Present Illness-CP Location: reports: substernal Chest Pain Radiation: reports: arms (left), shoulders (left) Quality of Pain: reports: tightness Onset/Duration: just prior to arrival Timing: resolved prior to arrival Context/Activities at Onset: reports: light activity Modifying Factors: improves with: other medication (nitro and aspirin) Associated Symptoms: reports: denies symptoms Nitro Today/Relief: 0.4 mg x 2, provided by EMS, complete relief Aspirin Treatment Today: 81 mg x 1, provided at home Prior Chest Pain/Cardiac Workup: reports: cardiac cath Similar Symptoms Previously?: No Recently Seen Here or By Another Healthcare Provider: No <Mariusz Gómez - Last Filed: 12/11/18 18:41> <Carole Calles - Last Filed: 12/11/18 20:21> - General Chief Complaint: Chest Pain Stated Complaint: left shoulder pain Time Seen by Provider: 12/11/18 15:09 Allergies/Adverse Reactions: Patient Allergies Allergy/AdvReac Type Severity Reaction Status Date / Time dextromethorphan HBr * Allergy Severe ANAPHYLAXIS Verified 11/22/17 08:40 [From NyQuil] doxylamine [From NyQuil] Allergy Severe ANAPHYLAXIS Verified 11/22/17 08:40 pseudoephedrine HCl * Allergy Severe ANAPHYLAXIS Verified 11/22/17 08:40 [From NyQuil] albuterol Allergy SHORTNESS Verified 11/22/17 08:40 OF BREATH dexlansoprazole Allergy CONFUISON Verified 11/22/17 08:40 [From Dexilant] fluticasone propionate * Allergy YEAST IN Verified 11/22/17 08:40 [From Advair Diskus] MOUTH ipratropium [From Atrovent] Allergy SHORTNESS Verified 11/22/17 08:40 OF BREATH methylprednisolone Allergy CHESTPAIN Verified 11/22/17 08:40 metoclopramide HCl * Allergy SHAKING Verified 11/22/17 08:40 [From Reglan] salmeterol xinafoate * Allergy YEAST IN Verified 11/22/17 08:40 [From Advair Diskus] MOUTH sleeping pill Allergy hallucnations Uncoded 11/22/17 08:40 found pt under bed Home Medications: Home Medication List Medication Instructions Recorded Confirmed Last Taken Type Clopidogrel Bisulfate [Plavix] 75 mg PO EVERY OTHER DAY 08/12/13 12/03/18 12/03/18 07:30 History Levothyroxine [Synthroid] 25 microgm PO DAILY 08/12/13 12/03/18 12/03/18 07:30 History Trazodone [Desyrel] 50 mg PO QHS 08/12/13 12/03/18 12/02/18 20:00 History Vitamin E 800 unit PO EVERY OTHER DAY 07/29/16 12/03/18 12/02/18 07:30 History Tamsulosin [Flomax] 0.4 mg PO QHS 11/22/17 12/03/18 12/02/18 20:00 History PRAVAstatin [Pravachol] 20 mg PO QHS 04/28/18 12/03/18 12/02/18 20:00 History Tramadol [Ultram] 50 mg PO TID 04/28/18 12/03/18 12/03/18 07:30 History Aspirin EC 325 mg PO QHS 12/03/18 12/03/18 12/02/18 20:00 History Calcium Phosphate Trib/Vit D3 1 ea PO DAILY 12/03/18 12/03/18 12/03/18 07:30 History [Calcium + Vitamin D3 Gummies] Cholecalciferol (Vitamin D3) 8,000 unit PO DAILY 12/03/18 12/03/18 12/03/18 07:30 History [Vitamin D3] Cyanocobalamin S.l. [Vitamin B-12] 2,500 microgm SUBLINGUAL DAILY 12/03/18 12/03/18 12/03/18 07:30 History Polyethylene Glycol 3350 [Miralax] 8.5 gm PO DAILY 12/03/18 12/03/18 12/02/18 07:30 History Prednisone 5 mg PO DAILY 12/03/18 12/03/18 12/03/18 07:30 History Gabapentin [Neurontin] 100 mg PO QHS #30 cap 12/07/18 Unknown Rx Nitroglycerin S.l. [Nitroglycerin] 0.3 mg SUBLINGUAL PRN PRN #1 12/11/18 Unknown Rx - History of Present Illness-CP Nature of Presenting Problem: 88yom presents to ED by EMS cc chest pain that radiates down left arm and started about 1pm today. Pt reports he took a tramadol, 2 aspirin and pain still didn't go away so he called his son who then called EMS. 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 Pt has a hx of stent and pacemaker. Pt denies N/V/D. Pt is A&Ox3. (Mariusz Gómez) Review of Systems - Adult - REVIEW OF SYSTEMS - ADULT Constitutional: reports: see HPI. denies: chills, fever, fatique Eyes: reports: no symptoms reported Ears, Nose, Mouth & Throat: reports: no symptoms reported Cardiovascular: reports: see HPI, chest pain. denies: irregular heart rate, syncope Respiratory: reports: no symptoms reported Gastrointestinal: reports: see HPI. denies: diarrhea, nausea, vomiting Genitourinary: reports: no symptoms reported Musculoskeletal: reports: no symptoms reported Integumentary: reports: no symptoms reported Neurological: reports: no symptoms reported Psychiatric: reports: no symptoms reported Endocrine: reports: no symptoms reported Hematologic/Lymphatic: reports: no symptoms reported Allergic/Immunologic: reports: no symptoms reported All Other Systems: Reviewed and Negative <Mariusz Gómez - Last Filed: 12/11/18 18:41> Past History - Adult - PAST MEDICAL HISTORY-ADULT Review of Records: reports: Nursing Assessment Review, Medications Reviewed, Social history reviewed & non-contributory. Major Childhood Illnesses: reports: denies history Cardiovascular: reports: denies history Respiratory: reports: denies history Gastrointestinal: reports: denies history Obstetrical/Gynecological: reports: denies history Genitourinary: reports: denies history Musculoskeletal: reports: denies history Neurological: reports: TIA Endocrine/Immune: reports: denies history Other Conditions: reports: denies history - PRIOR SURGERIES/PROCEDURES Surgical/Procedure History: reports: pacemaker, orthopedic (extremity) (right hip surgery) - IMMUNIZATION STATUS Childhood Immunizations: See Nurse Assessment Flu Vaccine: See Nurse Assessment - FAMILY HISTORY Family History: reviewed, not pertinent <Mariusz Gómez - Last Filed: 12/11/18 18:41> Physical Exam-General - PHYSICAL EXAM-ADULT Initial Vital Signs Reviewed: Yes - CONSTITUTIONAL General Appearance: appears well, alert, no apparent distress. negative: anxious, combative - EYES Eyes: PERRL/EOMI, pink conjunctivae. negative: photophobia - HEAD, EARS, NOSE, MOUTH & THROAT HENMT: moist mucous membranes, normal ENT inspection. negative: angioedema - NECK Neck: non-tender, full range of motion, supple, normal inspection. negative: Brudzinski's sign, carotid bruit - RESPIRATORY Respiratory: chest non-tender, lungs clear, normal breath sounds, no pleuratic chest pain, no respiratory distress, no accessory muscle use. negative: crackles, rales, rhonchi - CARDIOVASCULAR Cardiovascular: normal peripheral pulses, regular rate, rhythm, no edema, no g allop, no JVD, no murmur. negative: bradycardia, tachycardia - GASTROINTESTINAL (ABDOMEN) Abdominal Exam: normal bowel sounds, non tender, soft, no organomegaly. negative: rigid, rebound, tenderness - LYMPHATIC Lymphatic: no adenopathy. negative: striations - MUSCULOSKELETAL Back Exam: normal inspection. negative: swelling Extremity: normal range of motion, normal inspection. negative: deformity - SKIN Integumentary: warm/dry, purpura (both arms;abdomen from recent Lovenox shots). 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 negative: facial droop, focal weakness - PSYCHIATRIC Psych/Mental Status: normal mood/affect, normal thought content, normal thought process, oriented x 3. negative: anxious <Mariusz Gómez - Last Filed: 12/11/18 18:41> Progress - PLAN OF CARE/RESULTS Result Diagrams: 12/11/18 15:28 12/11/18 15:28 - REASSESSMENT Reassessment #1 Time Reassessed: 18:31 Status: unchanged (pt has had no CP since (prior to) arrival and has now 2 entirely normal EKGs, and an undetectable troponin @ time zero in ED, with a 2hr troponin pending: I plan to d/c him home for routine f/u with his Card. if T-2hr is also normal. I will Rx rescue s/l NTG and I have explained its use to pt and his daughter (@ bedside) in detail. He agrees to return if he has signif recurrent CP, especially if persisting beyond 2 sl NTG/10 minutes.) - EKG 1 Time of EKG reading by physician:: 15:17 EKG Read and Signed by:: Mariusz Gómez EKG Interpretation (*Must complete 3 of following elements*): Normal Rate: 95 Rhythm: normal sinus QRS: normal ST Wave: normal - XRAY 1 XRAY: Bilateral XRAY Study: Chest Impression: See EMR Report (IMPRESSION: Stable chest. Electronically signed by Kevan Mcmanus 12/11/2018 3:46 PM) - CHANGE OF SHIFT REPORT (ED Provider) 1 Report Given and Care Transferred to:: Stevan Time of Transfer: 19:00 Items Pending: Labs (will recommend d/c home as noted above if pt remains pain- free and T-2 is wnl.) <Mariusz Gómez - Last Filed: 12/11/18 18:41> - PLAN OF CARE/RESULTS Result Diagrams: 12/11/18 15:28 12/11/18 15:28 - CONSULTS/PCP/HOSPITALIST Notification #1 *Consult/PCP/Hospitalist*: DR GLOVER Time Discussed: 20:20 Reason/Comments: r/o ACS Consult Disposition: Admit <Carole Calles - Last Filed: 12/11/18 20:21> - PLAN OF CARE/RESULTS Progress/Plan/Lab Results: Vital Signs - 8 hr 12/11/18 14:55 12/11/18 15:01 12/11/18 16:10 Pulse Rate 105 H 91 H 93 H Respiratory Rate 20 18 Blood Pressure 120/69 O2 Sat by Pulse Oximetry 96 96 12/11/18 16:20 12/11/18 16:30 12/11/18 16:40 Pulse Rate 90 87 88 Respiratory Rate Blood Pressure O2 Sat by Pulse Oximetry 94 L 95 96 12/11/18 16:50 12/11/18 17:00 12/11/18 17:10 Pulse Rate 85 90 84 Respiratory Rate Blood Pressure O2 Sat by Pulse Oximetry 95 97 96 12/11/18 17:13 12/11/18 17:20 12/11/18 17:30 Pulse Rate 85 86 85 Respiratory Rate Blood Pressure 120/69 O2 Sat by Pulse Oximetry 96 95 96 12/11/18 17:40 12/11/18 17:50 12/11/18 18:00 Pulse Rate 83 95 H 80 Respiratory Rate Blood Pressure O2 Sat by Pulse Oximetry 95 97 97 12/11/18 19:30 Pulse Rate 80 Respiratory Rate Blood Pressure O2 Sat by Pulse Oximetry 95 Laboratory Results - last 24 hr 12/11/18 12/11/18 12/11/18 15:28 15:28 15:28 WBC 9.53 RBC 4.03 L Hgb 12.0 L Hct 36.8 L MCV 91.3 MCH 29.8 MCHC 32.6 L RDW Std Deviation 16.3 H Plt Count 133 MPV 11.1 H Immature Gran % (Auto) 1.2 H Neut % (Auto) 75.3 H Lymph % (Auto) 13.2 L [place] % (Auto) 8.2 Eos % (Auto) 1.6 Baso % (Auto) 0.5 Immature Gran # (Auto) 0.11 H Neut # (Auto) 7.18 H Lymph # (Auto) 1.26 [place] # (Auto) 0.78 H Eos # (Auto) 0.15 Baso # (Auto) 0.05 PT INR PTT (Actin FS) Sodium 135 L Potassium 5.2 H Chloride 102 Carbon Dioxide 22 L Anion Gap 11 BUN 30 H Creatinine 1.7 H Estimated GFR/1.73 m2 38 BUN/Creatinine Ratio 18 Glucose 177 H Calculated Osmolality 281 Calcium 9.4 Total Bilirubin < 0.15 L AST 11 ALT 13 Alkaline Phosphatase 52 Creatine Kinase 25 Troponin T Ghc-Y-Mlsqhrayplf Pept 236 Total Protein 6.1 L Albumin 3.8 Globulin 2.3 Albumin/Globulin Ratio 1.7 12/11/18 12/11/18 12/11/18 15:28 15:28 18:29 WBC RBC Hgb Hct MCV MCH MCHC RDW Std Deviation Plt Count MPV Immature Gran % (Auto) Neut % (Auto) Lymph % (Auto) [place] % (Auto) Eos % (Auto) Baso % (Auto) Immature Gran # (Auto) Neut # (Auto) Lymph # (Auto) [place] # (Auto) Eos # (Auto) Baso # (Auto) PT 13.1 INR 0.92 PTT (Actin FS) 29.6 Sodium Potassium Chloride Carbon Dioxide Anion Gap BUN Creatinine Estimated GFR/1.73 m2 BUN/Creatinine Ratio Glucose Calculated Osmolality Calcium Total Bilirubin AST ALT Alkaline Phosphatase Creatine Kinase 28 Troponin T < 0.010 Zbu-N-Fgmcwjracry Pept Total Protein Albumin Globulin Albumin/Globulin Ratio 12/11/18 18:29 WBC RBC Hgb Hct MCV MCH MCHC RDW Std Deviation Plt Count MPV Immature Gran % (Auto) Neut % (Auto) Lymph % (Auto) [place] % (Auto) Eos % (Auto) Baso % (Auto) Immature Gran # (Auto) Neut # (Auto) Lymph # (Auto) [place] # (Auto) Eos # (Auto) Baso # (Auto) PT INR PTT (Actin FS) Sodium Potassium Chloride Carbon Dioxide Anion Gap BUN Creatinine Estimated GFR/1.73 m2 BUN/Creatinine Ratio Glucose Calculated Osmolality Calcium Total Bilirubin AST ALT Alkaline Phosphatase Creatine Kinase Troponin T 0.034 D Xwk-Q-Jvxzsketbha Pept Total Protein Albumin Globulin Albumin/Globulin Ratio Orders Category Date Time Status Cardiac Monitoring DIRECTED Care 12/11/18 15:28 Active Oxygen Therapy- ED Nursing DIRECTED Care 12/11/18 15:28 Active Saline Loc NOW Care 12/11/18 15:28 Active CHEST-2 VIEWS [RAD] Stat Exams 12/11/18 15:28 Completed CBC WITH ELECTRONIC DIFF [HEME] Stat Lab 12/11/18 15:28 Completed CK PROFILE [SP CHEM] Stat Lab 12/11/18 15:28 Completed CK PROFILE [SP CHEM] Stat Lab 12/11/18 18:29 Completed COMPREHENSIVE METABOLIC PANEL [CHEM] Stat Lab 12/11/18 15:28 Completed PRO B-NATRIURETIC PEPTIDE Stat Lab 12/11/18 15:28 Completed PROTIME WITH INR [COAG] Stat Lab 12/11/18 15:28 Completed PTT [COAG] Stat Lab 12/11/18 15:28 Completed TROPONIN T Stat Lab 12/11/18 15:28 Completed TROPONIN T Stat Lab 12/11/18 18:29 Completed CP/SOB/Palp >45 yrs of Age Stat Oth 12/11/18 15:28 Ordered EKG [EKG] Stat Ther 12/11/18 15:28 Ordered EKG [EKG] Stat Ther 12/11/18 17:30 Ordered EKG [EKG] Stat Ther 12/11/18 18:08 Ordered Departure - Departure Date of Disposition Decision: 12/11/18 Certified Medical Emergency: Emergent - Critical Care Note This patient required my direct & personal management of CC.: No <Mariusz Gómez - Last Filed: 12/11/18 18:41> - Departure Time of Disposition Decision: 20:20 <Carole Calles - Last Filed: 12/11/18 20:21> - Departure DIAGNOSIS: Chest pain Disposition: ADMITTED INPATIENT 09 Condition: Stable Prescriptions: Nitroglycerin S.l. [Nitroglycerin] 0.3 mg SUBLINGUAL PRN PRN #1 PRN Reason: Chest Pain Referrals and Follow-Ups: Jose M Colorado MD [Primary Care Provider] - Attestation - Physician/ JANEE Attestation Patient care was provided by Advanced Practice Provider:: No The physician spent face to face time with patient:: Yes Advanced Practice Provider documentation review:: Supervising physician onsite and consulted in the evaluation and care of this patient. The physician did have a face to face encounter with the patient. <Mariusz Gómez - Last Filed: 12/11/18 18:41> This chart was documented by the indicated scribe, (Oneyda Frank Scribalex) and accurately reflects the services I performed and decisions made by Rico farnsworth Frederick B., MD, as attested by the provider's signature.
[2018-12-11] MEDS ORDERED: TYLENOL PO PRN (21:40)
[2018-12-11] MEDS ORDERED: ZOFRAN IV PRN (21:40)
[2018-12-11] MEDS ORDERED: NITROGLYCERIN SL PRN (21:40)
[2018-12-11] MEDS ORDERED: NS 1,000 ML IV ONE (21:56)
--- NOTE | 2018-12-11 22:34 | HISTORY AND PHYSICAL ---
CHIEF COMPLAINT: Chest pain. HISTORY OF PRESENT ILLNESS: Mr. Spain is an 88-year-old male who has a history of coronary artery disease. Prior to arrival today he started having chest pain, substernal, into his left chest and arm. I believe it started around 1 p.m. He stated that he took a tramadol and 2 aspirin. The pain still did not go away, so he had his son call EMS. Two nitro were given en route, which resolved the pain prior to arrival. He has a previous stent and a pacemaker, I believe. He denied any nausea or vomiting or becoming diaphoretic. I believe he was discharged around 4 days ago. His primary care provider is August Colorado. The patient follows with Dr. Caldera with Cardiology. He will be admitted for further evaluation and treatment. PAST MEDICAL HISTORY: Coronary artery stenosis, coronary artery disease status post stenting, essential tremor, shingles, hyperlipidemia, hypothyroidism, laryngotracheitis, GERD, osteoarthritis of the right hip, PMR, vitamin B12 deficiency. PREVIOUS SURGICAL HISTORY: Permanent pacemaker in 1994, stent placement in 2004, hiatal hernia surgery, bilateral cataract surgery, appendectomy, cholecystectomy, right hip replacement, foreign body removal from the throat. HOME MEDICATIONS: Aspirin 325 daily, Zyrtec 10 mg daily, Plavix 75 mg daily, Neurontin 300 mg b.i.d., Synthroid 25 mcg daily, lidocaine patch as needed, Pravastatin 20 mg daily, prednisone 5 mg daily, Flomax 0.4 mg daily, tramadol 50 mg 3 times a day, Trazodone 50 mg daily, vitamin D 50,000 units weekly. ALLERGIES: Advair, Combivent, Dexilant and methylprednisone, Reglan and NyQuil. SOCIAL HISTORY: Lives in [place]. 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 No tobacco or alcohol. No illicit drug use. FAMILY HISTORY: Father at age 38. Mother of childbirth at age 30. I was not able to find what the father from in old medical charting. REVIEW OF SYSTEMS: A 14-point review of systems was conducted with the patient. Pertinent positives are listed above in the HPI. All other systems reviewed and found to be negative . PHYSICAL EXAMINATION: VITAL SIGNS: Temperature 98, pulse 80, respirations 18, blood pressure 119/54, oxygen saturation 96% on room air. GENERAL: Pleasant 88-year-old male lying on the ER stretcher. Answers all questions appropriately. He is alert and oriented x3. He is in no pain at this time, and no acute distress. HEENT: Head is atraumatic, normocephalic. Pupils equal, round, and reactive to light. Extraocular eye movements intact. Sclerae are anicteric. Conjunctivae are pink. Oral mucosa is moist. NECK: Supple. No JVD. No thyromegaly. Trachea is midline. No cervical lymphadenopathy. CARDIAC: S1 and S2 appreciated. No murmurs, gallops or rubs. LUNGS: Clear to auscultation bilaterally. No rhonchi, wheezes or rales. Symmetrical rise and fall with respirations. ABDOMEN: Soft, nondistended, nontender. Bowel sounds present in all 4 quadrants. No pulsatile masses. No organomegaly. EXTREMITIES: No clubbing, cyanosis, or edema, 1+ pedal pulses bilaterally. GENITOURINARY: No bladder distention. The patient was otherwise deferred. NEUROLOGIC: Alert and oriented x3. Cranial nerves II-XII appear to be grossly intact. DIAGNOSTIC DATA: Chest x-ray: Left hemidiaphragm slightly elevated. EKG: Rate of 79, normal sinus rhythm. LABORATORY DATA: Hemoglobin 12, hematocrit 36.8. Sodium 135, potassium 5.2, chloride 102, carbon dioxide 22, BUN 30, creatinine 1.7, glucose 177. Troponin first was less than 0.10. Repeat troponin at 3 hours was 0.034. CKs were negative. ASSESSMENT/PLAN: 1. Chest pain with known coronary artery disease. Rule out acute myocardial infarction. The patient is followed by Dr. Caldera outpatient. Will consult Dr. Caldera. His primary care provider is Dr. Ileana Colorado. Will not order a stress test at this time. Will defer to his primary care team. Continue his Plavix and aspirin. Recheck electrocardiogram in morning. Trend cardiac enzymes. Nitroglycerin as needed for chest pain, sublingual. 2. Hyperglycemia. Check hemoglobin A1c. Does not have a history of diabetes mellitus. 3. Chronic kidney disease stage 3. This is stable at his baseline. 4. Mild hyperkalemia. Level is only 5.2. It is only very mildly elevated. Will give gentle fluid hydration overnight and recheck laboratory data in morning. 5. Hyperlipidemia. Continue statin. 6. Further recommendations per patient's clinical course. Dictated by JAYLENE Johnson for Shahbaz Lazaro MD cc: JAYLENE Johnson MD William D. Denney, MD Agree with the above. the following is my own face to face evaluation. Patient with chest pain, somewhat atypical but strong cardiac history with stent in 2004 and pacemaker for sick sinus syndrome. troponins x 2 negative but second did trend up minimally. will trend troponins and see what he does. will defer whether or not to do a stress test to his primary doctor in the morning. heart: RRR. lungs: CTAB. MTDD
[2018-12-11 22:50] LABS: HEMOGLOBIN A1C 5.9 % (4.8-6.0)
[2018-12-12] MEDS: NEURONTIN PO SCH ×2 (01:54→21:03)
[2018-12-12] MEDS: DESYREL PO SCH ×2 (01:54→21:03)
[2018-12-12] MEDS: SYNTHROID PO SCH (06:50)
[2018-12-12] MEDS: PRILOSEC PO SCH (06:50)
[2018-12-12 07:53] LABS: BASO# 0.07 X1000 (0.0-0.2); BASO% 0.7 % (0.0-0.8); EOS# 0.35 X1000 (0.0-0.7); EOS% 3.7 % (0.0-10.0); HEMATOCRIT 38.2 % (42.0-52.0); HEMOGLOBIN 12.4 g/dL (14.0-18.0); IMM GRAN% 1.1 % (0.0-0.5); LYMPH# 2.03 X1000 (1.2-3.4); LYMPH% 21.5 % (20.5-51.1); MCHC 32.5 g/dL (33-37); MCV 92.5 FL (81-99); MONO# 1.01 X1000 (0.11-0.59); MONO% 10.7 % (1.7-9.3); MPV 11.6 FL (7.4-10.4); NEUT# 5.89 X1000 (1.4-6.5); NEUT% 62.3 % (42.2-75.2); PLT 141 X1000 (130-400); RBC 4.13 XMIL (4.7-6.1); RDW 16.4 % (11.5-14.5); WBC 9.45 X1000 (4.8-10.8)
[2018-12-12 08:24] LABS: CALCIUM 8.9 mg/dL (8.8-10.2); CREATININE 1.5 mg/dL (0.7-1.2); POTASSIUM 4.5 mmol/L (3.5-5.1)
[2018-12-12 08:34] LABS: BANDS 2 % (0-1); LYMPHS 28 % (21-51); MONO 8 % (1-9); SEGS 62 % (42-75)
[2018-12-12] MEDS: MIRALAX PO SCH (08:44)
[2018-12-12] MEDS: ULTRAM PO SCH ×3 (08:45→21:03)
[2018-12-12] MEDS: PREDNISONE PO SCH (08:46)
[2018-12-12] MEDS: LOPRESSOR PO SCH ×2 (15:09→21:03)
[2018-12-12] MEDS: NORVASC PO SCH ×2 (15:10→21:03)
[2018-12-12] MEDS: ISORDIL PO SCH ×2 (15:19→21:02)
--- NOTE | 2018-12-12 16:46 | Diag Imaging Result Doc PS360 ---
EXAM: CT CERV/THORAX/LUMB SPINE W/O HISTORY: diffuse osteoarthritis TECHNIQUE: Emergency CT of the cervical spine, thoracic spine, and lumbar spine COMPARISON: None. FINDINGS: CT cervical spine: Mild scoliosis with prominent degenerative changes primarily from C5 to C7. No precervical soft tissue swelling. No subluxation. No fracture. No disc herniation identified. Prominent plaque in the left carotid bulb. CT thoracic spine: Mild scoliosis. Moderate bone spurring throughout the cervical spine. No subluxation. No fracture. No disc herniation identified. CT lumbar spine: There is good alignment to the lumbar spine. No fracture. No subluxation. No disc herniation. Mild dilatation of the distal abdominal aorta with a maximum diameter of 2.9 cm. Prominent atherosclerosis. The kidneys are atrophic. IMPRESSION: Cervical spine: Mild scoliosis with prominent degenerative changes in the lower cervical spine Thoracic spine: Mild scoliosis with mild to moderate degenerative changes. Lumbar spine: Mild degenerative changes. This exam was performed using automated exposure control, adjustment of mA or kV according to patient size, and/or use of iterative reconstruction technique. Electronically signed by Jon Kraft 12/12/2018 4:43 PM
--- NOTE | 2018-12-12 16:51 | Diag Imaging Result Doc PS360 ---
EXAM: CT THORAX W/O CONTRAST HISTORY: chest pain/abnormal CXRay TECHNIQUE: Emergent CT chest without contrast COMPARISON: None. FINDINGS: There is a left-sided pacemaker. The heart is not enlarged. No pleural effusions. Moderate atherosclerosis. No aortic aneurysm. No enlarged mediastinal nodes. The left hemidiaphragm is elevated. No consolidation. No bronchiectasis. Minimal basilar atelectasis. IMPRESSION: No acute abnormality. This exam was performed using automated exposure control, adjustment of mA or kV according to patient size, and/or use of iterative reconstruction technique. Electronically signed by Jon Kraft 12/12/2018 4:49 PM
[2018-12-12] MEDS ORDERED: DESYREL PO SCH (21:00)
[2018-12-12] MEDS ORDERED: NEURONTIN PO SCH (21:00)
[2018-12-12] MEDS ORDERED: PRAVACHOL PO SCH (21:00)
[2018-12-12] MEDS: LIPITOR PO SCH (21:02)
[2018-12-12] MEDS: VASOTEC PO SCH (21:02)
[2018-12-12] MEDS: ASPIRIN EC PO SCH (21:03)
[2018-12-12] MEDS: FLOMAX PO SCH (21:03)
--- NOTE | 2018-12-12 22:42 | PROGRESS NOTE ---
DATE: 12/12/2018 SUBJECTIVE: An 88-year-old, recently discharged from the hospital, came in by ambulance with chest pain going to the left arm last night. I appreciated evaluation in the ER as well as admitting by hospitalist. Currently he is pain-free. Family was at bedside. Right thigh pain is improved. PAST MEDICAL HISTORY: Reviewed. PAST SURGICAL HISTORY: Reviewed. MEDICATIONS: Reviewed. ALLERGIES: Reviewed. OBJECTIVE: On examination, temperature is 98.4 degrees, pulse 97, blood pressure 131/65, 93% on room air. HEENT exam within normal limits. Chest has bilateral air entry. Heart sounds are regular. Belly is soft, nontender. LABORATORY DATA: CBC: White cell count 9.4, hematocrit 38, platelets 141,000. SMA 7: Sodium 140, potassium 4.5, BUN 26, creatinine 1.5. CK was normal. Troponin was normal. ProBNP was normal. Cholesterol 113, LDL is fine. DIAGNOSTIC DATA: Chest x-ray stable; left hemidiaphragm slightly elevated; pacemaker present in the left side of the chest. ASSESSMENT AND PLAN: An 88-year-old white gentleman with noncritical coronary artery disease, admitted to the hospital with chest pain going to the left arm. Electrocardiogram was reported normal, ruled out. Last stress test was done 08/13/2013. Cardiac catheterization was done in 2016. We are going to find all the reports, and based on his clinical symptoms, we will do further workup. In the meantime, continue present treatment. Level of documentation is 25 minutes. cc: Kendrick Colorado MD
--- NOTE | 2018-12-12 23:24 | CARDIOLOGY CONSULTATION ---
DATE: 12/12/2018 CONSULTATION REQUESTED BY: Hospitalist Service and Dr. [place]. REASON FOR CONSULTATION: Chest pain. CHIEF COMPLAINT: Chest pain. HISTORY OF PRESENT ILLNESS: Mr. Spain presented to the emergency room department yesterday, December 11. He says that he was doing fine, usual state of health, until about 1:00 in the afternoon, about an hour after he ate lunch. He was sitting watching TV, and all of a sudden, he developed a sharp, intense, left anterior chest discomfort. The pain was referred to the underside of the left breast to the left pectoralis muscle area. This seemed to radiate to the axilla, to the left shoulder, and down the left arm. This happened intermittently. It was very severe. He did take 2 aspirins and 1 Tramadol when the pain started, experiencing a little bit of relief. They summoned the ambulance rather quickly and they gave him 2 nitroglycerins, and he says that after nitroglycerin, there was some improvement. Initially, the pain was steady. This morning, he has experienced intermittent episodes of very sharp pain under the left breast. The pains are not associated with dyspnea, diaphoresis, nausea, or weakness. He does not recall the pain that he experienced before his stent, which was about 11 years ago, being similar to this type of pain. The previously reported pain was exertional, and it was more like a tightness across the anterior chest from right to left. PAST HISTORY: Positive for severe coronary heart disease. Previous coronary stenting in 2007 in [place]. He does have a history of sick sinus syndrome, and he has received a pacemaker when he was living in [place] over 14 years ago. He has had 2 generator replacements, one in 2005, the last one in 2016 in [place]. The patient has hyperlipidemia, hypertension. He has suffered shingles about a year ago. He has been complaining of pain in the right hip. He has also been found to have significant cervical spine osteoarthritis. He has had acid reflux. Lately, he has developed significant weakness in both legs with inability to walk. He has been using a scooter to get around. SURGICAL HISTORY: Positive for appendectomy, cholecystectomy. He has had also hemorrhoid surgery, Augustin fundoplication, hip replacement. SOCIAL HISTORY: He has been to his for more than 50 years. He has had 5 children. Two live in [place] where he used to reside, two live in [place], and one in [place]. 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 He moved to [place] about 10 years ago or 11 years ago. He never been a smoker nor a drinker. FAMILY HISTORY: Positive for hypertension. HOME MEDICATIONS: He is taking aspirin, vitamin D3, gabapentin 100 at bedtime, cyanocobalamin, vitamin B12, Plavix 75 daily, Flomax 0.4 mg at bedtime, prednisone 5 mg daily, trazodone 50 at bedtime. ALLERGIES: Albuterol, dextromethorphan, pseudoephedrine, Dexilant, Atrovent, Advair Diskus, and sleeping pill. He is considered to be high for risk. REVIEW OF SYSTEMS: Basically positive for general debility. He cannot walk well because of weakness in the legs. He was recently admitted to the hospital with intractable pain. They concluded that he had some sort of neuropathy. The patient is normally followed by Dr. Alex Caldera at my office. His last pacemaker check was 08/28/2018. His DDDR device is a [employer] DR generator, serial #[id number]. The device is working properly. He is not pacemaker dependent. He has no atrial fibrillation. The patient was seen physically by Dr. Caldera on 04/02/2018, and at that time, he appeared to be clinically stable. There were no plans to do any specific testing. Review of systems is really otherwise noncontributory. PHYSICAL EXAMINATION: Vital signs: Blood pressure is 183/86, temperature 98.9, pulse 87, respirations 18. General: He is awake, alert, oriented, in no distress. He is very hard of hearing. HEENT: Unremarkable. Chest: Basically clear to auscultation and percussion. Heart: Sounds are regular, rhythmic. I do not hear any gallop or rub. He may have a very soft systolic murmur. Abdomen: Nontender, soft. No masses or hepatomegaly. Extremities: Show diminished pulses. No edema. Neurologic: Nonfocal. Moves 4 extremities. BLOOD WORK: Sodium 140, potassium 4.5, BUN 26, creatinine 1.5. Hemoglobin is 12.4, hematocrit is 38.2. IMAGING STUDIES: A chest x-ray done in the ER showed no major abnormalities. ELECTROCARDIOGRAPHIC DATA: EKG done at 0620 this morning shows atrial paced rhythm. The QRS axis, ST-T wave, everything is normal. OTHER BLOOD WORK: Of note, his proBNP level was normal at 236 pg/mL; normal is up to 450. His troponin levels, on the other hand, were slightly elevated at 0.034 and 0.055. IMPRESSION: 1. Patient presenting with chest pain that sounds very atypical. However, there has been a change in his troponin level. This is very subtle. His EKG shows no acute ischemic changes. 2. History of coronary heart disease, previous stenting in 2007. 3. History of sick sinus syndrome, status post dual-chamber pacemaker which is working properly per recent checkup 3 months ago. 4. General debility and severe osteoarthritis of the cervical spine. Weakness of the legs. The patient may have a spinal stenosis, and it is possible that some of the pain could relate to that. However, it would not explain the change in troponin. 5. The patient has hyperlipidemia. His LDL cholesterol unfortunately is not at target, is 122. Total is 180, and HDL is 48. The patient really needs to be on a cholesterol regimen to minimize progression of disease, even while he is old and frail. 6. History of hiatal hernia repair. RECOMMENDATIONS: At this point in time, I will suggest to obtain an echocardiogram to make sure that there is no wall motion abnormality. We will probably arrange for a nuclear perfusion stress test. I will suggest to do a CT scan of the chest without contrast to evaluate for infiltration of the left lung base, and also consider doing a CT of the cervical spine and thoracolumbar spine since he probably has spinal stenosis explaining his lower extremity weakness. Thank you again for asking us to participate in his evaluation. Further advice will be forthcoming. At this time, we are going to try to adjust his medications to optimize his systemic blood pressure, which is markedly elevated. I am going to go ahead and put him on beta blockers as well as amlodipine and will take it from there. cc: MD Kendrick Diaz MD
[2018-12-13] MEDS: SYNTHROID PO SCH (06:01)
[2018-12-13] MEDS: LOPRESSOR PO SCH ×3 (06:01→23:05)
[2018-12-13] MEDS: PRILOSEC PO SCH (06:01)
[2018-12-13] MEDS: PLAVIX PO SCH (11:02)
[2018-12-13] MEDS: PREDNISONE PO SCH (11:02)
[2018-12-13] MEDS: NORVASC PO SCH (11:04)
--- NOTE | 2018-12-13 11:04 | CARDIOLOGY PROGRESS NOTE ---
DATE: 12/13/2018 CHIEF COMPLAINT: The patient is with shortness of breath, chest discomfort. SUBJECTIVE: Mr. Spain is feeling better today. He is not having any more chest pain. OBJECTIVE: Blood pressure is 91/52, temperature 97.6, pulse 70, respirations 18. He is awake, alert, in no distress. HEENT is unremarkable. Chest sounds clear to auscultation and percussion. Heart sounds are regular and rhythmic. His chest wall is less tender today. Abdomen is nontender. Extremities showed no edema. Neurologic: Follows commands. Moves all 4 extremities. DIAGNOSTIC DATA: Hemoglobin is 12.4. Sodium 140, potassium 4.5, BUN is 26, creatinine 1.5. His troponins were 0.034 and 0.055. His 12-lead EKG from yesterday was unremarkable. IMPRESSION: 1. The patient presented with chest pain, question of atypical chest pain, noncardiac versus angina. 2. History of coronary heart disease. 3. Hyperlipidemia. 4. Hypertension. 5. Sick sinus syndrome, status post pacemaker. RECOMMENDATIONS: At this time, we will arrange for a stress test in a couple of days. We have done CT of the chest which shows no acute abnormality. We have done CT of the thoracic spine that shows diffuse degenerative disease. At this time, we will observe the patient's clinical course. I will order a followup troponin and a followup EKG. cc: MD Kendrick Diaz MD
[2018-12-13] MEDS: VASOTEC PO SCH (11:05)
[2018-12-13] MEDS: ISORDIL PO SCH ×4 (11:07→17:24)
[2018-12-13] MEDS: MIRALAX PO SCH (11:08)
[2018-12-13] MEDS: ULTRAM PO SCH ×3 (11:09→17:24)
--- NOTE | 2018-12-13 14:56 | PROGRESS NOTE ---
DATE: 12/13/2018 SUBJECTIVE: Blood pressure is low this morning. He is not offering any chest pain. Appreciate Dr. Patricia's consult. REVIEW OF SYSTEM: No pain. OBJECTIVE: Vital signs: Temperature is 98 degrees, pulse 69, blood pressure on the low side. HEENT: Within normal limits. Neck: Supple. No lymphadenopathy. Chest: Clear. Heart: Sounds are regular. Abdomen: Belly is soft, nontender. No obvious deficits. INVESTIGATIONS: CBC: White cell count 9.4, hematocrit 38, platelets 141,000. SMA 7: Sodium 140, potassium 4.5, BUN 26, creatinine 1.1. Cardiac enzymes were negative. Cervical and thoracic spine: Mild scoliosis, DJD changes. Thoracic and lumbar spine: Mild DJD changes. Chest CT: No acute abnormality. ASSESSMENT AND PLAN: 1. Chest pain, existing noncritical heart disease, previous stenting in 2018, sick sinus syndrome status post dual pacemaker. Ruled out. 2. Hypotension. We will hold the blood pressure medicine. Family was not at bedside. 3. Hyperlipidemia. On Lipitor. 4. Right hip pain. 5. He is on pravastatin. Dr. Patricia started him on Lipitor and he is already on Plavix. We need to adjust his medications. He is getting more hypotensive. I am going to discontinue the amlodipine and will discuss with the family. We will DC and follow up as an outpatient. He has BPH, on Flomax. He is already on pravastatin. They changed it to Lipitor. He was started on Vasotec, Norvasc, Isordil, metoprolol, and Flomax. That is causing low blood pressure, so we judiciously use the medications and monitor for next 24 hours and follow up. cc: Kendrick [place] MD
[2018-12-13] MEDS: ASPIRIN EC PO SCH (23:04)
[2018-12-13] MEDS: LIPITOR PO SCH (23:04)
[2018-12-13] MEDS: FLOMAX PO SCH (23:04)
[2018-12-13] MEDS: NEURONTIN PO SCH (23:04)
[2018-12-13] MEDS: DESYREL PO SCH (23:06)
[2018-12-14] MEDS: PRILOSEC PO SCH (06:15)
[2018-12-14] MEDS: SYNTHROID PO SCH (06:15)
[2018-12-14] MEDS: LOPRESSOR PO SCH ×3 (06:15→21:52)
--- NOTE | 2018-12-14 07:20 | EKG Report ---
Test Performed on : 12/11/2018 4:53:27 PM Test Reason : CHEST PAIN Blood Pressure : / mmHG Vent. Rate : 087 BPM Atrial Rate : 087 BPM P-R Int : 164 ms QRS Dur : 068 ms QT Int : 306 ms P-R-T Axes : 084 018 060 degrees QTc Int : 368 ms Normal sinus rhythm. Anterior infarct , age undetermined Abnormal ECG When compared with ECG of 11-DEC-2018 15:17, (Unconfirmed) Anterior infarct is now present Nonspecific T wave abnormality no longer evident in Inferior leads T wave amplitude has decreased in Anterior leads QT has shortened Unconfirmed Result
--- NOTE | 2018-12-14 07:21 | EKG Report ---
Test Performed on : 12/11/2018 6:20:36 PM Test Reason : chest pain Blood Pressure : / mmHG Vent. Rate : 079 BPM Atrial Rate : 079 BPM P-R Int : 176 ms QRS Dur : 068 ms QT Int : 362 ms P-R-T Axes : 044 055 057 degrees QTc Int : 415 ms Normal sinus rhythm. Normal ECG When compared with ECG of 11-DEC-2018 16:53, (Unconfirmed) Criteria for Anterior infarct are no longer present ST elevation now present in Inferior leads ST elevation now present in Anterior leads T wave amplitude has increased in Anterior leads Unconfirmed Result
--- NOTE | 2018-12-14 07:27 | EKG Report ---
Test Performed on : 12/12/2018 06:20:31 AM Test Reason : CP Blood Pressure : / mmHG Vent. Rate : 075 BPM Atrial Rate : 075 BPM P-R Int : 168 ms QRS Dur : 080 ms QT Int : 386 ms P-R-T Axes : 050 059 052 degrees QTc Int : 431 ms Sinus rhythm. with premature atrial complexes. Otherwise normal ECG When compared with ECG of 11-DEC-2018 18:20, (Unconfirmed) premature atrial complexes. are now present Confirmed by Ki MATHEW, Maurice Isaacs ([id number]) on 12/15/2018 12:41:23 PM
--- NOTE | 2018-12-14 08:10 | EKG Report ---
Test Performed on : 12/14/2018 07:41:06 AM Test Reason : CHEST PAIN Blood Pressure : / mmHG Vent. Rate : 070 BPM Atrial Rate : 070 BPM P-R Int : 216 ms QRS Dur : 070 ms QT Int : 390 ms P-R-T Axes : 077 054 043 degrees QTc Int : 421 ms Atrial-paced rhythm with prolonged AV conduction Abnormal ECG When compared with ECG of 12-DEC-2018 06:20, (Unconfirmed) Electronic atrial pacemaker has replaced Sinus rhythm. Confirmed by Ki MATHEW, Maurice Isaacs ([id number]) on 12/15/2018 12:42:13 PM
[2018-12-14] MEDS: ULTRAM PO SCH ×3 (10:12→17:31)
[2018-12-14] MEDS: PREDNISONE PO SCH (10:13)
[2018-12-14] MEDS: MIRALAX PO SCH (10:13)
[2018-12-14] MEDS: ISORDIL PO SCH ×3 (10:15→16:34)
--- NOTE | 2018-12-14 12:53 | CARDIOLOGY PROGRESS NOTE ---
DATE: 12/14/2018 CHIEF COMPLAINT: Chest pain. SUBJECTIVE: Mr. Spain is doing better. The pain in the left anterior chest has improved. We have checked several additional troponin levels. The values are 0.032, 0.018, and 0.020. EKG shows paced atrial rhythm. There is no obvious ST-T shifts. He is feeling weak this morning. His blood pressure dropped. OBJECTIVE: Blood pressure is 99/62, temperature 98 degrees, pulse 69, respirations 16. He is awake, elderly, in no obvious distress. Chest sounds clear to auscultation and percussion. Heart sounds are regular and rhythmic. I do not hear a gallop or murmur. Abdomen is nontender. Extremities showed no edema. Neurologic: Follows commands. Moves all 4 extremities. IMPRESSION: 1. The patient presented with chest pain, appears to be noncardiac; however, his troponins changed into the fam zone. 2. History of previous coronary stent. 3. Sick sinus syndrome, status post pacemaker. 4. Osteoarthritis. 5. Hyperlipidemia. 6. History of hiatal hernia repair. RECOMMENDATIONS: At this time, I would suggest to proceed with stress testing in the morning. We will also make changes to his medications because his blood pressure was running low. He may be very sensitive to isosorbide dinitrate. Further advice will be forthcoming. cc: MD Kendrick Diaz MD
[2018-12-14] MEDS: LIPITOR PO SCH (21:52)
[2018-12-14] MEDS: ASPIRIN EC PO SCH (21:52)
[2018-12-14] MEDS: NEURONTIN PO SCH (21:52)
[2018-12-14] MEDS: FLOMAX PO SCH (21:52)
[2018-12-14] MEDS: DESYREL PO SCH (21:52)
--- NOTE | 2018-12-15 04:04 | PROGRESS NOTE ---
DATE: 12/14/2018 Ms. Stefan Tang had some atypical chest pain. She has a history of coronary artery disease. Vital signs are stable. She is going to get a stress test in the morning. -7 cc: MD Kendrick Hammond MD
[2018-12-15] MEDS: LOPRESSOR PO SCH ×3 (05:27→20:43)
[2018-12-15] MEDS: SYNTHROID PO SCH (06:43)
[2018-12-15] MEDS: PRILOSEC PO SCH (06:43)
--- NOTE | 2018-12-15 07:25 | EKG Report ---
Test Performed on : 12/15/2018 07:18:05 AM Test Reason : CHEST PAIN Blood Pressure : / mmHG Vent. Rate : 070 BPM Atrial Rate : 070 BPM P-R Int : 216 ms QRS Dur : 080 ms QT Int : 378 ms P-R-T Axes : 073 058 056 degrees QTc Int : 408 ms Atrial-paced rhythm with prolonged AV conduction Abnormal ECG When compared with ECG of 14-DEC-2018 07:41, (Unconfirmed) No significant change was found Confirmed by Ki MATHEW, Maurice Isaacs ([id number]) on 12/15/2018 12:43:06 PM
[2018-12-15] MEDS: ULTRAM PO SCH ×3 (10:23→20:44)
[2018-12-15] MEDS: ISORDIL PO SCH ×3 (10:24→16:03)
[2018-12-15] MEDS ORDERED: LEXISCAN ONE (12:12)
[2018-12-15] MEDS: MIRALAX PO SCH (16:00)
[2018-12-15] MEDS: PLAVIX PO SCH (16:05)
[2018-12-15] MEDS: PREDNISONE PO SCH (16:06)
--- NOTE | 2018-12-15 17:35 | Diag Imaging Result Document ---
PROCEDURE NAME: MYOCARDIAL PERF SCAN, STR/REST - 12/15/2018 LEXISCAN SESTAMIBI INTERPRETATION: SUMMARY: The patient was administered 11.8 mCi of technetium-99m sestamibi, after which resting cardiac images were obtained. The patient was subsequently administered Lexiscan 0.4 mg intravenously, after which the heart rate went from 70 beats per minute to 80 beats per minute and the blood pressure went from 152/75 to 109/56. With Lexiscan, the patient denied chest discomfort. Following the administration of Lexiscan, the patient was administered 33.8 mCi of technetium-99m sestamibi, after which gated stress cardiac images were obtained. Baseline ECG demonstrated sinus rhythm and was within normal limits. With Lexiscan, there were no diagnostic ST-segment changes. SPECT images were reconstructed in the short, horizontal long, and vertical long axes. Review of these images demonstrated a small region of mildly diminished activity in the basal inferior wall stress images which appears similar on resting images. No significant reversibility is evident. Gated images demonstrate a calculated left ventricular ejection fraction of 71% with symmetrical wall motion/thickening. CONCLUSIONS: 1. Adequate response to Lexiscan. 2. Clinically negative for chest pain. 3. Electrocardiographically negative for Lexiscan-induced myocardial ischemia. 4. Lexiscan sestamibi images demonstrate no convincing scintigraphic evidence of inducible myocardial ischemia. Normal left ventricular systolic function demonstrated. cc: MD Lalito Duval MD
[2018-12-15] MEDS: DESYREL PO SCH (20:43)
[2018-12-15] MEDS: FLOMAX PO SCH (20:43)
[2018-12-15] MEDS: NEURONTIN PO SCH (20:43)
[2018-12-15] MEDS: LIPITOR PO SCH (20:43)
[2018-12-15] MEDS: ASPIRIN EC PO SCH (20:43)
--- NOTE | 2018-12-15 21:21 | PROGRESS NOTE ---
DATE: 12/15/2018 SUBJECTIVE: The is at bedside. I spoke to the family as well as Dr. Patricia. The patient has been scheduled for a stress test this morning. No pain. EXAMINATION: Vital Signs: Temp is 97, pulse 70, blood pressure is 127/65. HEENT: Within normal limits. Chest: Clear. Heart: Sounds are regular. Abdomen: Belly is soft, nontender. Good bowel sounds. No neurological deficits. ASSESSMENT AND PLAN: 1. Hypotension. Multiple medications for blood pressure. He is already on Flomax 0.4 mg daily and isosorbide 10 t.i.d., metoprolol 25 q.8. I am going to cut down the MARI inhibitors and amlodipine. 2. Right hip pain. 3. Post herpetic neurology is stable. 4. Hyperlipidemia, on Lipitor. 5. Carotid disease, on dual anticoagulation with aspirin and Plavix, is better. Follow up on stress test. Based on that, further recommendations will be followed. LEVEL OF DOCUMENTATION: 25 minutes. cc: Kendrick [place] MD
[2018-12-16] MEDS: LOPRESSOR PO SCH (06:24)
[2018-12-16] MEDS: SYNTHROID PO SCH (06:24)
[2018-12-16] MEDS: PRILOSEC PO SCH (06:24)
[2018-12-16 08:03] VITALS: BP 113/62
--- NOTE | 2018-12-16 08:29 | CARDIOLOGY PROGRESS NOTE ---
DATE: 12/16/2018 CHIEF COMPLAINT: Chest pain. SUBJECTIVE: Mr. Spain is feeling fine. He has not had anymore chest pain. Yesterday, he underwent a Lexiscan myocardial perfusion stress test that indicates no active ischemia. Ejection fraction on that test is normal reported at 71%. Laboratory work showed elevated BUN and creatinine in a mild degree. All of his troponins have fallen within the fam zone 0.034, 0.055, 0.032, 0.018, and 0.020. His ProBNP level was normal on admission. OBJECTIVE: Vital signs: Blood pressure 141/75, temperature 97.7, pulse 70, respirations 17. General: He is awake, alert, in no distress. is at the bedside. HEENT: Unremarkable. Chest: Sounds clear to auscultation and percussion. Heart: Sounds are regular and rhythmic. I do not hear a gallop or murmur. Abdomen: Nontender. Extremities: Showed no edema. Neurologic exam: Follows commands, moves all 4 extremities. During this admission, he had a CT of the chest that showed no acute abnormality, and his chest x- ray showed no CHF. IMPRESSION: 1. Patient presented with chest pain that initially appeared to be noncardiac, however, there was a change in the troponins falling within the fam zone. There is a chance that this patient have had either a very tiny ischemic event given his history of coronary artery disease versus some pleuropericarditis, which is self-limited. At any rate, he is not having anymore pain and he does not have any high risk markers for coronary events especially given a negative stress test and the normal Pro BNP level. 2. History of chronic back pain. 3. Chronic kidney disease. 4. Osteoarthritis. 5. Hyperlipidemia. 6. Sick sinus syndrome status post pacemaker. 7. History of coronary stent in the past. RECOMMENDATIONS: At this time, I would suggest to continue medical therapy under the direction of Dr. Paez. He may be discharged on the current regimen and follow up with our team at the office. He normally follows with Dr. Caldera. We will arrange for followup with him soon. cc: MD Kendrick Diaz MD MTDD
[2018-12-16] MEDS: ISORDIL PO SCH (09:38)
[2018-12-16] MEDS: ULTRAM PO SCH (09:39)
[2018-12-16] MEDS: MIRALAX PO SCH (09:40)
[2018-12-16] MEDS: PREDNISONE PO SCH (09:40)
--- NOTE | 2018-12-20 01:24 | DISCHARGE SUMMARY ---
ADMISSION DATE: 12/13/2018 DISCHARGE DATE: 12/16/2018 DISCHARGING DIAGNOSIS: Chest pain, atypical. SECONDARY DIAGNOSES: 1. 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 2. Noncritical carotid artery stenosis, noncritical coronary artery nose coronary artery stenosis. 3. Essential tremor. 4. Hyperlipidemia. 5. Hypothyroidism. 6. Laryngotracheitis due to acid reflux disease. 7. Polymyalgia rheumatica. 8. Vitamin B12 deficiency. 9. Deconditioning. CONSULT: Dr. Patricia. PROCEDURES: Myocardial perfusion scan, clinically negative for chest pain. EKG negative for Lexiscan-induced myocardial ischemia. Normal LV systolic function, the EF 71%. RADIOLOGY PROCEDURES: 1. CT scan of cervical spine, thoracic spine, lumbar spine. A. CT of cervical spine: Mild scoliosis. No fracture, no disk herniation noted. B. CT lumbar spine: Kidneys are atrophic. Distal abdominal aorta maximum 2.9 cm. No subluxation, no discrimination. C. CT thoracic spine: Mild scoliosis and DJD changes. 2. Chest x-ray left hemidiaphragm slightly elevated. No significant change noted. History of pacemaker on the left side of the chest. 3. EKG atrial paced rhythm, nothing acute. BRIEF HISTORY: Please see the H and P that was done on 12/11 by hospitalist. In brief, he is an 88-year-old white male with known history of PAD with previous stenting in 2018 in [place], history of sick sinus syndrome status post pacemaker with 2 replacement of generators, basically came into the ER with chest pain going to the left side of the arm. As a result, rehospitalization was warranted. HOSPITAL COURSE: EKG showed atrial pacemaker rhythm. Further workup, cardiac enzymes were negative. Dr. Patricia was consulted. The patient had a Lexiscan stress test, which was unremarkable. The patient was not able to tolerate different medications which causing the low blood pressure. At this time, findings were reassuring, relegated to medical management. LABS: CBC: White cell count 9.4, hematocrit 38, platelets 141,000. Sodium 140, potassium 4.5, chloride 104, BUN 26, creatinine 1.5. Glucose 85, A1c 5.9, calcium 8.9. Cardiac enzymes were negative. ProBNP 236. Triglycerides 131, the cholesterol 180, LDL 122. DISCHARGE INSTRUCTIONS FOLLOWS: 1. Outpatient home health care. 2. Synthroid 25 mcg daily, Plavix 75 daily, trazodone 50 at bedtime, vitamin E 800 units every other day, Flomax 0.4 mg at bedtime, pravastatin 20 mg daily, keep the LDL less than 100, tramadol 50 t.i.d., calcium with vitamin D 1 tablet daily, vitamin D3 8000 units daily, B12 is 2000 mcg daily, aspirin 325 daily, MiraLAX 17 g daily, prednisone 5 mg daily, Neurontin 100 at bedtime for chronic neuropathy pain, metoprolol 25 daily, nitroglycerin as needed. 3. Follow up in my office in 2 weeks. cc: MD Lalito Keith MD
== END 2018-12-16 10:43 | disposition home health service (06) | DRG 313 ==
LOC: SUPCPDRO → ED 14:47 → INTOOBSV 23:12 → 3N 23:12 → SUATTDRO 23:12
PROVIDERS: ADMIT Internal Medicine; ATTEND Internal Medicine
CPT/HCPCS: 71020; 71046; 71250; 72125; 72128; 72131; 78452; 80048; 80053; 80061; 82550; 83036; 83721; 83880; 84484; 85025; 85610; 85651; 85730; 86140; 93005; 93010; 93017; 99285; A9270; A9500; J2785; J7030; J7506; J7512